=== PATIENT | male | born 1990 | race Hispanic/Latino ===

== ENCOUNTER 2021-07-27 14:34 | Emergency (ER) | payer SELFPAY ==
[2021-07-27 17:04] LABS: SARS-COV-2 RT PCR POSITIVE (NEGATIVE)
--- NOTE | 2021-07-27 17:17 | EDPHYS ---
Physician Documentation [facility] Name: Ko Rollins Age: 31 yrs Sex: Male : 1990 Arrival Date: 07/27/2021 Time: 14:38 Bed Waiting Private MD: TRINIDAD Physician Renzo Mcclellan HPI: 07/27 17:39 This 31 yrs old Male presents to ER via Ambulatory with complaints of Sore kb Throat, Headache. 17:39 The patient presents with sore throat. The patient describes throat pain as constant. kb Onset: The symptoms/episode began/occurred 4 day(s) ago. Severity of symptoms: At their worst the symptoms were moderate, in the emergency department the symptoms are unchanged. Modifying factors: The symptoms are alleviated by nothing, the symptoms are aggravated by nothing. Associated signs and symptoms: Pertinent positives: headache, Sore throat Pertinent negatives fever. The patient has not experienced similar symptoms in the past. The patient has not recently seen a physician. Pt reports headache, bodyaches and chills for 4 days. Denies cough. . Historical: - Allergies: 15:34 No Known Allergies; ap3 - Home Meds: 15:34 None [Active]; ap3 - PMHx: 15:34 None; ap3 - PSHx: 15:34 None; ap3 - Immunization history:: Client reports having NOT received the Covid vaccine. - Social history:: Smoking status: Patient/guardian denies using tobacco, Stopped _ months ago 4. ROS: 17:39 Respiratory: Negative for shortness of breath, cough, wheezing, and pleuritic chest kb pain. 17:39 Constitutional: Positive for body aches, malaise. 17:39 ENT: Positive for sore throat. 17:39 Neuro: Positive for headache. 17:39 All other systems are negative. Exam: 17:39 Constitutional: This is a well developed, well nourished patient who is awake, alert, kb and in no acute distress. Head/Face: Normocephalic, atraumatic. ENT: Moist Mucous membranes Cardiovascular: Regular rate and rhythm with a normal S1 and S2. No gallops, murmurs, or rubs. No pulse deficits. Respiratory: Respirations even and unlabored. No increased work of breathing. Talking in full sentences Skin: Warm, dry with normal turgor. Normal color. MS/ Extremity: Pulses equal, no cyanosis. Neurovascular intact. Full, normal range of motion. Neuro: Awake and alert, GCS 15, oriented to person, place, time, and situation. Moves all extremities. Normal gait. Psych: Awake, alert, with orientation to person, place and time. Behavior, mood, and affect are within normal limits. Vital Signs: 15:32 BP 128 / 87; Pulse 68; Temp 98.2(O); Pulse Ox 99% on R/A; Weight 63.5 kg; Height 5 ft. ap3 5 in. (165.10 cm); 15:32 Body Mass Index 23.30 (63.50 kg, 165.10 cm) ap3 MDM: 17:06 Data reviewed: vital signs, nurses notes. Data interpreted: Pulse oximetry: on room air kb is 99 %. Interpretation: normal. 17:16 Patient medically screened. kb 17:41 Counseling: I had a detailed discussion with the patient and/or guardian regarding: the kb historical points, exam findings, and any diagnostic results supporting the discharge/admit diagnosis, lab results, the need for outpatient follow up, a family practitioner, to return to the emergency department if symptoms worsen or persist or if there are any questions or concerns that arise at home. 07/27 15:43 Order name: COVID-19/FLU A+B (Document "Date of Onset" if Symptomatic); Complete Time: ll1 17:06 Administered Medications: No medications were administered Disposition: 07/28 12:58 Co-signature as Attending Physician, Renzo Mcclellan MD I agree with the assessment and danilo plan of care. Disposition Summary: 07/27/21 17:16 Discharge Ordered Location: Home kb Condition: Stable kb Diagnosis - Coronavirus infection, unspecified kb Followup: kb - With: Emergency Department - When: As needed - Reason: Worsening of condition Followup: kb - With: Private Physician - When: 2 - 3 days - Reason: Recheck today's complaints, Continuance of care, Re-evaluation by your physician Discharge Instructions: - Discharge Summary Sheet kb - Viral Respiratory Infection, [id number] kb - COVID-19 kb Forms: - Medication Reconciliation Form kb - Thank You Letter kb - Antibiotic Education kb - Prescription Opioid Use kb Signatures: Dispatcher [employer] EDLoyda Jasso FNP-C FNP-Renzo Coffey MD MD cha Prokisch, Amanda, MAAME RN ap3
--- NOTE | 2021-07-27 17:17 | ER ---
Nurse's Notes [facility] Name: Ko Rollins Age: 31 yrs Sex: Male : 1990 Arrival Date: 07/27/2021 Time: 14:38 Bed Waiting Private MD: Diagnosis: Coronavirus infection, unspecified Presentation: 07/27 15:32 Chief complaint: Patient states: he has had cough, congestion, headache and sore throat ap3 since 07/25/21. Coronavirus screen: congestion, cough unrelated to allergies, headache, muscle pain, Client presents with at least one sign or symptom that may indicate coronavirus-19. Standard/surgical mask placed on the client. Provider contacted for isolation considerations. Ebola Screen: No symptoms or risks identified at this time. Initial Sepsis Screen: Does the patient meet any 2 criteria? No. Patient's initial sepsis screen is negative. Does the patient have a suspected source of infection? No. Patient's initial sepsis screen is negative. Risk Assessment: Do you want to hurt yourself or someone else? Patient reports no desire to harm self or others. Onset of symptoms was July 26, 2021. 15:32 Method Of Arrival: Ambulatory ap3 15:32 Acuity: TAMI 4 ap3 Triage Assessment: 15:35 General: Appears in no apparent distress. Behavior is calm, cooperative. Pain: ap3 Complains of pain in generalized body aches, and throat. EENT: Reports nasal congestion pain in throat. Neuro: Level of Consciousness is awake, alert, obeys commands, Oriented to person, place, time, situation. Cardiovascular: Patient's skin is warm and dry. Respiratory: Reports cough that is Airway is patent Respiratory effort is even, unlabored, Respiratory pattern is regular, symmetrical. Historical: - Allergies: 15:34 No Known Allergies; ap3 - Home Meds: 15:34 None [Active]; ap3 - PMHx: 15:34 None; ap3 - PSHx: 15:34 None; ap3 - Immunization history:: Client reports having NOT received the Covid vaccine. - Social history:: Smoking status: Patient/guardian denies using tobacco, Stopped _ months ago 4. Screenin:36 Abuse screen: Denies threats or abuse. Nutritional screening: No deficits noted. ap3 Tuberculosis screening: No symptoms or risk factors identified. Vital Signs: 15:32 BP 128 / 87; Pulse 68; Temp 98.2(O); Pulse Ox 99% on R/A; Weight 63.5 kg; Height 5 ft. ap3 5 in. (165.10 cm); 15:32 Body Mass Index 23.30 (63.50 kg, 165.10 cm) ap3 ED Course: 14:38 Patient arrived in ED. mr 15:34 Triage completed. ap3 15:36 Arm band placed on left wrist. ap3 17:04 Loyda Schmidt FNP-C is [facility]. kb 17:04 Renzo Mcclellan MD is Attending Physician. kb Administered Medications: No medications were administered Outcome: 17:16 Discharge ordered by . kb 17:22 Patient left the ED. kb Signatures: Loyda Schmidt FNP-C FNP-Cralos FonsecaaCarolynn mr ButlerLilia, RN RN ap3
[2021-07-27 17:31] VITALS: BP 128/87; TEMP 98.2; O2SAT 99
== END 2021-07-27 17:22 | disposition home or self-care (01) ==
LOC: ER 14:34
DX: U07.1 COVID-19 (principal)
CPT/HCPCS: 0240U; 99281